=== PATIENT | female | born 1935 | race American Indian/Alaskan Native ===

== ENCOUNTER 2016-09-25 08:26 | Day surgery (SDC) | payer MEDICARE ==
[~2016-09-25 08:26] MED LIST: TETCAINE OS PRN; TETRACAINE 0.5% OS PRN
--- NOTE | 2016-09-25 12:05 | Anesthesia Consultation ---
Anesthesia Consult and Med Hx Date of service: 09/25/16 - Airway Anesthetic Teeth Evaluation: Dentures (UPPER AND LOWER) ROM Head & Neck: Adequate Mallampati Class: Class III Intubation Access Assessment: Probably Good - Pulmonary Exam CTA: Yes - Cardiac Exam Cardiac Exam: RRR - Pre-Operative Health Status ASA Pre-Surgery Classification: ASA2 Proposed Anesthetic Plan: MAC - Cardiovascular System Hx Hypertension: Yes (occas due to anxiety) - Central Nervous System Hx Psychiatric Problems: Yes - Endocrine Hx Non-Insulin Dependent Diabetes: Yes - Other Systems Hx Cancer: No
[2016-09-25] MEDS: VIGAMOX OS SCH ×3 (12:35→12:45)
[2016-09-25] MEDS: MYDRIACYL OS SCH ×3 (12:35→12:45)
[2016-09-25] MEDS: AK-Dilate OS SCH ×3 (12:35→12:45)
[2016-09-25] MEDS ORDERED: ADRENALINE P/F IV ONE (14:35)
[2016-09-25] MEDS ORDERED: SUBLIMAZE ONE (14:37)
[2016-09-25] MEDS ORDERED: VERSED ONE (14:37)
[2016-09-25] MEDS ORDERED: NACL P/F VIAL (10 ML) 10 ML ONE (14:38)
[2016-09-25] MEDS ORDERED: APRESOLINE ONE (15:04)
--- NOTE | 2016-09-25 15:11 | Short Stay Summary ---
Short Stay Documentation Date of service: 09/25/16 - History H&P: obtained from office - Allergies and Medications Current Medications: Allergies aspirin Allergy (Verified 09/23/16 10:38) Unknown Penicillins Allergy (Verified 09/23/16 10:38) Unknown Home Medications Medication Instructions Recorded Confirmed Last Taken Type Acetaminophen [Tylenol] 500 mg PO BID 05/15/16 09/23/16 Unknown History Acetaminophen/Codeine [Tylenol #3] 1 tab PO BID 05/15/16 09/23/16 09/24/16 History Esomeprazole Magnesium [NexIUM] 40 mg PO QDAY 05/15/16 09/23/16 09/24/16 History LORazepam [Ativan] 0.5 mg PO QHS PRN 05/15/16 09/23/16 09/24/16 History Potassium Chloride [K-Dur] 10 meq PO QDAY 05/15/16 09/23/16 09/24/16 History Sertraline [Zoloft] 100 mg PO QDAY 05/15/16 09/23/16 09/24/16 History Simvastatin [Zocor TAB] 40 mg PO QHS 05/15/16 09/23/16 09/24/16 History diphenhydrAMINE [Benadryl CAP] 50 mg PO Q8HR PRN 05/15/16 09/23/16 Unknown History fluPHENAZine HCL [Prolixin] 7.5 mg PO BID 05/15/16 09/23/16 09/24/16 History metFORMIN 500 mg PO DAILY 05/15/16 09/23/16 09/24/16 History traZODone [Desyrel] 100 mg PO QHS 05/15/16 09/23/16 09/24/16 History Ascorbic Acid [Vitamin C] 500 mg PO DAILY 08/12/16 09/23/16 09/24/16 History Ciclopirox 0.77% (Nf) [Loprox 1 drop TD PRN PRN 08/12/16 09/23/16 08/10/16 History 0.77% Cream] Mv,Ca,Fe,Min/FA/Guarana/Caff [One 1 each PO DAILY 08/12/16 09/23/16 09/24/16 History Daily Tablet] Solifenacin Succinate [Vesicare] 5 mg PO QDAY 08/12/16 09/23/16 09/24/16 History Vitamin E 400 unit PO DAILY 08/12/16 09/23/16 09/24/16 History amLODIPine/VALSARTAN [Exforge 1 each PO DAILY 09/25/16 09/25/16 09/25/16 08:00 History 5-160 mg Tablet] Active Medications Moxifloxacin HCl (Vigamox) 1 drops OS Q5MIN [facility] Stop: 09/25/16 20:00 Last Admin: 09/25/16 12:45 Dose: 1 drops Phenylephrine HCl (Ak-Dilate) 1 drops OS Q5M [facility] Stop: 09/25/16 20:00 Last Admin: 09/25/16 12:45 Dose: 1 drops Prednisolone Acetate (Pred Forte 1%) 1 drops OS QID [facility] Tetracaine HCl (Tetracaine 0.5%) 1 drops OS Q5M PRN PRN Reason: Anesthesia Stop: 09/25/16 20:00 Last Admin: 09/25/16 12:35 Dose: 1 drops Tropicamide (Mydriacyl) 1 drops OS Q5MIN [facility] Stop: 09/25/16 20:00 Last Admin: 09/25/16 12:45 Dose: 1 drops - Brief post op/procedure progress note Date of procedure: 09/25/16 Pre-op diagnosis: cataract left eye Post-op diagnosis: same Procedure: Phacoemulsification with intraocular lens insertion left eye Anesthesia: MAC Surgeon: ILDA ALMONTE Estimated blood loss: none Pathology: none Condition: stable - Disposition Condition at discharge: Good Disposition: DISCHARGED TO HOME OR SELFCARE - Discharge Diagnoses (1) Cataract Status: Acute
--- NOTE | 2016-09-25 15:13 | Operative Report ---
Operative Report Operative Report: PATIENT'S NAME: DATE OF : DATE OF SURGERY: 09/25/2016 PREOPERATIVE DIAGNOSIS: Cataract left eye POSTOPERATIVE DIAGNOSIS: Same OPERATIVE PROCEDURE: Phacoemulsification with intraocular lens implantation, left eye SURGEON: Stacey Kilgore M.D. ORGANIZATIONAL DEVELOPMENT CONSULTANT SURGEON: Saul Lens: [id number] 19.0 D ANESTHESIA: Monitored anesthesia care in combination with topical and intracameral anesthesia because of the established specific risk of reflux, arrhythmias, or anxiety attacks associated with ocular manipulation, as well as the difficulty of the business analysis consultant to manage such potentially catastrophic events while simultaneously attempting to complete the surgical procedure and was deemed necessary for the patient's safety to have an Obstetrician present during the procedure whenever possible. An Obstetrician was utilized to regulate the intravenous sedation of the patient so the patient was cooperative yet not asleep in order for the patient to successfully maintain fixation of the eye on the operating light of the microscope. COMPLICATIONS: [No surgical complications] No blood loss. ALLERGIES: Aspirin and penicillin PROGNOSIS: Excellent INDICATIONS FOR SURGERY: The patient is undergoing surgery in the hopes of eliminating or improving these visual difficulties. PROCEDURE: After arriving at the surgery center, the patient was given topical anesthetic and dilating drops, as noted in the record. The patient was then taken into the operating room and given more anesthetic drops. The eyelids , lashes, and lid margins were scrubbed with Betadine solution, and the patient was draped. The Nurse Obstetrician administered IV sedation and monitored the patient during the procedure. The eye was then fixated with a 0.12, and a stab incision was made in the peripheral clear cornea into the anterior chamber. This was made on my left side. Viscoelastic was next used to fill the anterior chamber. The eye was once again fixated with the 0.12 forceps and a keratome was used make an incision in clear cornea peripherally on my right hand side temporally. The capsule forceps were used to open the central anterior capsule and then make a continuous round capsulotomy. Hydrodissection was carried out utilizing a cannula and balanced salt solution to delineate the cortical material from the capsule and the nucleus from the cortical material. The phaco tip was introduced into the eye and used to remove the anterior cortical material in the area of the capsulotomy. Then the phaco tip was buried into the nucleus, and a chopping instrument was introduced into the eye and used to provide countertraction in the nucleus between this instrument and the phaco tip fracturing the nucleus. This procedure was repeated multiple times, providing multiple small segments of the lens, and then the phaco tip was used to remove each of these segments. An I/A tip was then used to remove the remaining cortex. The anterior chamber was refilled with viscoelastic. An one-piece, acrylic intraocular lens was then placed into an inserting cartridge. The tip of the inserting cartridge was introduced into the keratome incision and into the anterior chamber. The implant was gently advanced through the cartridge and into the eye, where it unfolded, and both haptics were placed in the capsular bag, where it centered nicely and appeared to be well fixated. After placement of the intraocular lens, the I~and~A handpiece was placed back into the eye and used to remove the viscoelastic, including viscoelastic that was behind the optic of the intraocular lens. The anterior chamber was then filled with balanced salt solution, and hydration of the wound was used to cause swelling of the wound and more appropriate watertight closure. When the wound was found to be firm, the patient was asked to comment on how bright the light was. If there was no light perception at all or if the light was substantially dimmer than during the rest of the surgery, the amount of fluid in the eye was decompressed to lower the intraocular pressure until the patient could see the bright light again. This was done to avoid any damage or decreased blood flow to the optic nerve. MEDICATIONS APPLIED AT END OF SURGERY: One drop of Pred Forte and Vigamox The patient was given a shield to wear at night and was instructed not to rub or push on the eye. DISCHARGE SUMMARY: The patient was released in stable condition. The patient and those with the patient were given a written sheet of postoperative instructions and counseling on any abnormal laboratory studies. The patient is to see us tomorrow for follow-up in the office and is to call immediately for any difficulties. Stacey Kilgore M.D. Date
--- NOTE | 2016-09-25 16:32 | Post Anesthesia Evaluation ---
- Post Anesthesia Evaluation Patient Participated: Yes Airway Patent: Yes Stable Respiratory Function: Yes Temp > 96.8F: Yes Pain Manageable: Yes Adequeate Hydration: Yes Anesthesia Complications: No Block Receding Appropriately: Not Applicable (Blood pressure poolly controlled, Patient should follow up with her personal physician)
[2016-09-25 16:33] VITALS: BP 162/74
[2016-09-25] MEDS ORDERED: PRED FORTE 1% OS SCH (18:00)
[2016-09-25] MEDS ORDERED: PRED FORTE 1% ONE (18:00)
== END 2016-09-25 16:57 | disposition home or self-care (01) ==
LOC: OR 08:26
DX: E11.36 Type 2 diabetes mellitus with diabetic cataract (principal); I10 Essential (primary) hypertension; K21.9 Gastro-esophageal reflux disease without esophagitis; F20.9 Schizophrenia, unspecified; F03.90 Unspecified dementia, unspecified severity, without behavioral disturbance, psychotic disturbance, mood disturbance, and anxiety
CPT/HCPCS: 66984; 82962; J0171; J0360; J2250; J3010; V2632

== ENCOUNTER 2017-09-09 10:56 | Emergency (ER) | payer MEDICARE ==
--- NOTE | 2017-09-09 11:54 | Emergency Department Report ---
HPI - General Time Seen by Provider: 09/09/17 11:39 - HPI HPI: This is an 82 year-old female presents to the emergency department from her ECF with complaint of a 3 day history of left foot pain and swelling. She denies any pain to the ankle or above. She denies any trauma. She has a past medical history of hypertension, diabetes, dementia, and paranoid schizophrenia. Her PCP is listed as a Dr. Rowley. Unknown if the patient took anything or was given anything for her symptoms prior to presentation. ED Past Medical Hx - Past Medical History Hx Hypertension: Yes (occas due to anxiety) Hx Diabetes: Yes Hx GERD: Yes (occas) Hx Psychiatric Treatment: Yes (Paranoid Schizophrenia) Hx Dementia: Yes (early onset) - Surgical History Additional Surgical History: hysterectomy - Social History Smoking Status: Former Smoker - Medications Home Medications: Home Medications Medication Instructions Recorded Confirmed Last Taken Type Acetaminophen [Tylenol] 500 mg PO BID 05/15/16 09/23/16 Unknown History Acetaminophen/Codeine [Tylenol #3] 1 tab PO BID 05/15/16 09/23/16 09/24/16 History Esomeprazole Magnesium [NexIUM] 40 mg PO QDAY 05/15/16 09/23/16 09/24/16 History LORazepam [Ativan] 0.5 mg PO QHS PRN 05/15/16 09/23/16 09/24/16 History Potassium Chloride [K-Dur] 10 meq PO QDAY 05/15/16 09/23/16 09/24/16 History Sertraline [Zoloft] 100 mg PO QDAY 05/15/16 09/23/16 09/24/16 History Simvastatin [Zocor TAB] 40 mg PO QHS 05/15/16 09/23/16 09/24/16 History diphenhydrAMINE [Benadryl CAP] 50 mg PO Q8HR PRN 05/15/16 09/23/16 Unknown History fluPHENAZine HCL [Prolixin] 7.5 mg PO BID 05/15/16 09/23/16 09/24/16 History metFORMIN 500 mg PO DAILY 05/15/16 09/23/16 09/24/16 History traZODone [Desyrel] 100 mg PO QHS 05/15/16 09/23/16 09/24/16 History Ascorbic Acid [Vitamin C] 500 mg PO DAILY 08/12/16 09/23/16 09/24/16 History Ciclopirox 0.77% (Nf) [Loprox 1 drop TD PRN PRN 08/12/16 09/23/16 08/10/16 History 0.77% Cream] Mv-Mins/Folic Acid/Guarana/Caf 1 each PO DAILY 08/12/16 09/23/16 09/24/16 History [One Daily Tablet] Solifenacin Succinate [Vesicare] 5 mg PO QDAY 08/12/16 09/23/16 09/24/16 History Vitamin E 400 unit PO DAILY 08/12/16 09/23/16 09/24/16 History amLODIPine/VALSARTAN [Exforge 1 each PO DAILY 09/25/16 09/25/16 09/25/16 08:00 History 5-160 mg Tablet] Sulfamethoxazole/Trimethoprim 1 each PO BID #14 tablet 09/09/17 Unknown Rx [Bactrim DS TAB] ED Review of Systems ROS: Stated complaint: SWOLLEN LEFT FOOT Other details as noted in HPI Comment: All other systems reviewed and negative Constitutional: denies: chills, fever Eyes: denies: eye pain, eye discharge, vision change ENT: denies: ear pain, throat pain Respiratory: denies: cough, shortness of breath, wheezing Cardiovascular: edema (left foot). denies: chest pain, palpitations Gastrointestinal: denies: abdominal pain, nausea, diarrhea Genitourinary: denies: urgency, dysuria, discharge Musculoskeletal: joint swelling, arthralgia Skin: denies: rash, lesions Neurological: denies: headache, weakness, paresthesias Physical Exam - Physical Exam Physical Exam: GENERAL: The patient is well-developed well-nourished. HENT: Normocephalic. Atraumatic. Patient has moist mucous membranes. EYES: Extraocular motions are intact. Pupils equal reactive to light bilaterally. NECK: Supple. Trachea is midline. CHEST/LUNGS: Clear to auscultation. There is no respiratory distress noted. HEART/CARDIOVASCULAR: Regular. There is no tachycardia. There is no murmur. ABDOMEN: Abdomen is soft, nontender. Patient has normal bowel sounds. There is no abdominal distention. SKIN: Skin is warm and dry. There is no appreciable edema or erythema to the affected left foot. NEURO: The patient is awake, alert. The patient is cooperative. The patient has no focal neurologic deficits. The patient has normal speech. MUSCULOSKELETAL: There is no tenderness or deformity. There is no limitation range of motion. There is no evidence of acute injury. ED Medical Decision Making - Lab Data Result diagrams: 09/09/17 12:10 09/09/17 12:10 - Radiology Data Radiology results: report reviewed, image reviewed interpreted by me: X-ray of the left foot does not show any fracture, dislocation or signs of osteomyelitis. No subcutaneous air. Left lower extremity venous Doppler negative for DVT. - Medical Decision Making 82-year-old female who is a diabetic presents with some left foot pain and swelling. No appreciable swelling here or signs or symptoms of infection. However secondary to the patient's diabetes, she'll be placed on some antibiotics and given a referral for podiatry. X-ray does not show any fracture , signs of osteomyelitis or subcutaneous air. Venous Doppler negative for DVT. Critical Care Time: No Critical care attestation.: If time is entered above; I have spent that time in minutes in the direct care of this critically ill patient, excluding procedure time. ED Disposition Clinical Impression: Left foot pain, Foot swelling Disposition: - TO HOME OR SELFCARE Is pt being admited?: No Condition: Stable Instructions: Arthralgia (ED) Additional Instructions: Please follow-up with your primary care physician in the next few days. I have given you a referral for a local apparel patternmaker, Dr. Ricardo, to follow-up regarding or foot pain. Return to the emergency Department with any worsening of your symptoms or any acute distress. Prescriptions: Sulfamethoxazole/Trimethoprim [Bactrim DS TAB] 1 each PO BID #14 tablet Referrals: PRIMARY CARE, [Primary Care Provider] - 3-5 Days VELIA RICARDO DPM [Staff Physician] - 3-5 Days Time of Disposition: 14:27
[2017-09-09 12:28] LABS: Basophils % (Auto) 0.3 % (0.0-1.8); Hematocrit 33.4 % (30.3-42.9); Hemoglobin 11.2 gm/dl (10.1-14.3); Mean Corpuscular HGB Conc 34 % (30-34); Mean Corpuscular Hemoglobin 27 pg (28-32); Mean Corpuscular Volume 81 fl (79-97); Platelet Count 217 K/mm3 (140-440); Red Blood Count 4.11 M/mm3 (3.65-5.03); Red Cell Distribution Width 14.4 % (13.2-15.2); White Blood Count 10.2 K/mm3 (4.5-11.0)
[2017-09-09 12:44] LABS: Calcium 9.6 mg/dL (8.4-10.2); Chloride 94.2 mmol/L (98-107); Uric Acid 5.9 mg/dL (3.5-7.6)
[2017-09-09] MEDS ORDERED: BACTRIM DS PO ONE (13:19)
--- NOTE | 2017-09-09 13:48 | XRay Report ---
LEFT FOOT, 3 views: History: Left foot pain. Mild osteopenia is noted. Bony alignment is normal. No soft tissue abnormalities are seen. The joint spaces appear preserved. IMPRESSION: Osteopenia. No acute process identified.
[2017-09-09 15:24] VITALS: BP 102/68
== END 2017-09-09 15:20 | disposition home or self-care (01) ==
LOC: ED 10:56
DX: M79.672 Pain in left foot (principal); M79.89 Other specified soft tissue disorders; I10 Essential (primary) hypertension; E11.9 Type 2 diabetes mellitus without complications; K21.9 Gastro-esophageal reflux disease without esophagitis; F20.0 Paranoid schizophrenia; F03.90 Unspecified dementia, unspecified severity, without behavioral disturbance, psychotic disturbance, mood disturbance, and anxiety; Z90.710 Acquired absence of both cervix and uterus; Z87.891 Personal history of nicotine dependence; Z88.6 Allergy status to analgesic agent; Z88.0 Allergy status to penicillin
CPT/HCPCS: 36415; 80048; 84550; 85025; 99284

== ENCOUNTER 2017-10-17 08:33 | Emergency (ER) | payer MEDICARE ==
[2017-10-17 09:39] LABS: Basophils % (Auto) 0.6 % (0.0-1.8); Eosinophils % (Auto) 0.1 % (0.0-4.3); Hematocrit 33.8 % (30.3-42.9); Hemoglobin 10.9 gm/dl (10.1-14.3); Lymphocytes # (Auto) 1.1 K/mm3 (1.2-5.4); Lymphocytes % (Auto) 19.5 % (13.4-35.0); Mean Corpuscular HGB Conc 32 % (30-34); Mean Corpuscular Hemoglobin 27 pg (28-32); Mean Corpuscular Volume 82 fl (79-97); Monocytes # (Auto) 0.7 K/mm3 (0.0-0.8); Monocytes % (Auto) 12.4 % (0.0-7.3); Platelet Count 213 K/mm3 (140-440); Red Cell Distribution Width 15.8 % (13.2-15.2)
--- NOTE | 2017-10-17 09:41 | Emergency Department Report ---
HPI - General Chief Complaint: Dyspnea/Respdistress Time Seen by Provider: 10/17/17 08:56 - HPI HPI: This is an 82 year-old female presents to the emergency department via EMS from her ECF at [facility] for the complaint of a productive cough. The patient says that this is been going on for a few weeks but worsened recently. Last night she says she felt like she may have had a fever but it was not checked. She denies any chest pain at rest but has some pain to the left side of her chest with coughing. She denies any back pain, nausea, vomiting, diaphoresis. She has a past medical history of some dementia , diabetes, GERD, hypertension. She has a psychiatric history of schizophrenia. She is a former smoker. She has not taken and was not given anything for her symptoms prior to presentation. No recent travel. ED Past Medical Hx - Past Medical History Previous Medical History?: Yes Hx Hypertension: Yes (occas due to anxiety) Hx Diabetes: Yes Hx GERD: Yes (occas) Hx Psychiatric Treatment: Yes (Paranoid Schizophrenia) Hx Dementia: Yes (early onset) - Surgical History Past Surgical History?: Yes Additional Surgical History: hysterectomy - Social History Smoking Status: Former Smoker Substance Use Type: None - Medications Home Medications: Home Medications Medication Instructions Recorded Confirmed Last Taken Type Acetaminophen [Tylenol] 500 mg PO BID 05/15/16 09/23/16 Unknown History Acetaminophen/Codeine [Tylenol #3] 1 tab PO BID 05/15/16 09/23/16 09/24/16 History Esomeprazole Magnesium [NexIUM] 40 mg PO QDAY 05/15/16 09/23/16 09/24/16 History LORazepam [Ativan] 0.5 mg PO QHS PRN 05/15/16 09/23/16 09/24/16 History Potassium Chloride [K-Dur] 10 meq PO QDAY 05/15/16 09/23/16 09/24/16 History Sertraline [Zoloft] 100 mg PO QDAY 05/15/16 09/23/16 09/24/16 History Simvastatin [Zocor TAB] 40 mg PO QHS 05/15/16 09/23/16 09/24/16 History diphenhydrAMINE [Benadryl CAP] 50 mg PO Q8HR PRN 05/15/16 09/23/16 Unknown History fluPHENAZine HCL [Prolixin] 7.5 mg PO BID 05/15/16 09/23/16 09/24/16 History metFORMIN 500 mg PO DAILY 05/15/16 09/23/16 09/24/16 History traZODone [Desyrel] 100 mg PO QHS 05/15/16 09/23/16 09/24/16 History Ascorbic Acid [Vitamin C] 500 mg PO DAILY 08/12/16 09/23/16 09/24/16 History Ciclopirox 0.77% (Nf) [Loprox 1 drop TD PRN PRN 08/12/16 09/23/16 08/10/16 History 0.77% Cream] Mv-Mins/Folic Acid/Guarana/Caf 1 each PO DAILY 08/12/16 09/23/16 09/24/16 History [One Daily Tablet] Solifenacin Succinate [Vesicare] 5 mg PO QDAY 08/12/16 09/23/16 09/24/16 History Vitamin E 400 unit PO DAILY 08/12/16 09/23/16 09/24/16 History amLODIPine/VALSARTAN [Exforge 1 each PO DAILY 09/25/16 09/25/16 09/25/16 08:00 History 5-160 mg Tablet] Sulfamethoxazole/Trimethoprim 1 each PO BID #14 tablet 09/09/17 Unknown Rx [Bactrim DS TAB] ALBUTEROL Inhaler [ProAir HFA 2 puff IH QID PRN #1 inhalation 10/17/17 Unknown Rx Inhaler] Benzonatate [Tessalon Perles] 100 mg PO Q8HR PRN #14 capsule 10/17/17 Unknown Rx ED Review of Systems ROS: Stated complaint: EAR PAIN Other details as noted in HPI Comment: All other systems reviewed and negative Constitutional: fever (subjective). denies: diaphoresis Eyes: denies: eye pain, eye discharge, vision change ENT: ear pain. denies: throat pain Respiratory: cough. denies: wheezing Cardiovascular: chest pain (with coughing). denies: edema Gastrointestinal: denies: abdominal pain, nausea, diarrhea Genitourinary: denies: urgency, dysuria, discharge Musculoskeletal: denies: back pain, joint swelling, arthralgia Skin: denies: rash, lesions Neurological: denies: headache, weakness, paresthesias Physical Exam - Physical Exam Vital Signs: Vital Signs 10/17/17 09:33 Temperature 98.9 F Pulse Rate 53 L Respiratory 14 Rate Blood Pressure 169/73 [Right] Physical Exam: GENERAL: The patient is well-developed well-nourished. HENT: Normocephalic. Atraumatic. Patient has moist mucous membranes. Oropharynx is clear. She has some cerumen in the external canals but otherwise there is no otitis media. EYES: Extraocular motions are intact. Pupils equal reactive to light bilaterally. NECK: Supple. Trachea is midline. CHEST/LUNGS: Clear to auscultation. A productive cough heard during examination. No tachypnea or accessory muscle use. There is no respiratory distress noted. HEART/CARDIOVASCULAR: Regular. There is no tachycardia. There is no murmur. ABDOMEN: Abdomen is soft, nontender. Patient has normal bowel sounds. There is no abdominal distention. SKIN: Skin is warm and dry. NEURO: The patient is awake, alert. The patient is cooperative. The patient has no focal neurologic deficits. The patient has normal speech. MUSCULOSKELETAL: There is no tenderness or deformity. There is no limitation range of motion. There is no evidence of acute injury. ED Course Vital Signs 10/17/17 09:33 Temperature 98.9 F Pulse Rate 53 L Respiratory 14 Rate Blood Pressure 169/73 [Right] ED Medical Decision Making - Lab Data Result diagrams: 10/17/17 09:27 10/17/17 09:27 - EKG Data -: EKG Interpreted by Me EKG shows normal: sinus rhythm, axis, intervals, QRS complexes (LVH, Q waves to the septal leads), ST-T waves Rate: bradycardia (52 bpm) - EKG Data When compared to previous EKG there are: previous EKG unavailable Interpretation: LVH (with septal q waves) - Radiology Data Radiology results: report reviewed, image reviewed interpreted by me: Chest x-ray does not show any acute process. There are no pleural effusions, obvious pneumonia and there is no pneumothorax. CTA CHEST: HISTORY: Short of breath. COMPARISON: none. TECHNIQUE: Helical CT in 1.25mm intervals following IV contrast. Pulmonary embolus protocol. Sagittal and coronal reformatted images. Rotational MIP images. FINDINGS: Contrast bolus is satisfactory. No pulmonary embolus is identified. Thyroid gland: Normal. Tracheobronchial tree: Normal. Esophagus: Normal. Heart: Mild cardiomegaly is present. Pericardium: Normal. Mediastinum: The aorta is mildly ectatic. No evidence for dissection. The ascending aorta is mildly dilated up to 4.3 cm in diameter. Lung Conteh: normal. Pleural Spaces: Normal. Musculoskeletal: Intact with mild degenerative changes. IMPRESSION: No evidence for pulmonary embolus. Mild cardiomegaly. No acute processes identified in the chest Transcribed By: TTR Dictated By: CATHY OLSEN JR, MD Electronically Authenticated By: CATHY OLSEN JR, MD Signed Date/Time: 10/17/17 1211 - Medical Decision Making 82-year-old female presents from her [facility]pc with questionable ear pain and a cough. She does not appear to be in any respiratory distress. Labs are mostly unremarkable. Chest x-ray did not show any acute process. She did have an elevated and equivocal d-dimer so a CT angiography of the chest was done that did not show any pulmonary embolus or any other acute process. Vital signs stable and being afebrile. The patient appears safe for discharge back to her fpc facility. I spoke with the patient's son and he understands and agrees with the plan. - Differential Diagnosis asthma, bronchitis, influenza, URI, PE Critical Care Time: No Critical care attestation.: If time is entered above; I have spent that time in minutes in the direct care of this critically ill patient, excluding procedure time. ED Disposition Clinical Impression: Upper respiratory infection Qualifiers: URI type: unspecified URI Qualified Code(s): J06.9 - Acute upper respiratory infection, unspecified Hypertension Qualifiers: Hypertension type: essential hypertension Qualified Code(s): I10 - Essential ( primary) hypertension Disposition: DC-01 TO HOME OR SELFCARE Is pt being admited?: No Condition: Stable Instructions: Upper Respiratory Infection (ED), Hypertension (ED) Additional Instructions: Please follow-up with your primary care physician in the next few days. Return to the emergency Department with any worsening of your symptoms or any acute distress. Prescriptions: ALBUTEROL Inhaler [ProAir HFA Inhaler] 2 puff IH QID PRN #1 inhalation PRN Reason: Shortness Of Breath Benzonatate [Tessalon Perles] 100 mg PO Q8HR PRN #14 capsule PRN Reason: Cough Referrals: PRIMARY CARE, [Primary Care Provider] - 3-5 Days Time of Disposition: 12:45
[2017-10-17 09:50] LABS: INR 0.99 (0.87-1.13); Partial Thromboplastin Time 30.5 Sec. (24.2-36.6)
[2017-10-17 09:57] LABS: BUN/Creatinine Ratio 22; Blood Urea Nitrogen 11 mg/dL (7-17); Calcium 8.7 mg/dL (8.4-10.2); Hemolysis Index 10
--- NOTE | 2017-10-17 10:27 | XRay Report ---
AP CHEST: HISTORY: chest pain AP view of the chest demonstrates a normal mediastinal and cardiac contour with clear lungs and normal bony and soft tissue structures. IMPRESSION: No acute cardiopulmonary process identified.
--- NOTE | 2017-10-17 12:17 | Cat Scan Report ---
CTA CHEST: HISTORY: Short of breath. COMPARISON: none. TECHNIQUE: Helical CT in 1.25mm intervals following IV contrast. Pulmonary embolus protocol. Sagittal and coronal reformatted images. Rotational MIP images. FINDINGS: Contrast bolus is satisfactory. No pulmonary embolus is identified. Thyroid gland: Normal. Tracheobronchial tree: Normal. Esophagus: Normal. Heart: Mild cardiomegaly is present. Pericardium: Normal. Mediastinum: The aorta is mildly ectatic. No evidence for dissection. The ascending aorta is mildly dilated up to 4.3 cm in diameter. Lung Conteh: normal. Pleural Spaces: Normal. Musculoskeletal: Intact with mild degenerative changes. IMPRESSION: No evidence for pulmonary embolus. Mild cardiomegaly. No acute processes identified in the chest
[2017-10-17 12:45] VITALS: BP 161/68
== END 2017-10-17 14:30 | disposition home or self-care (01) ==
LOC: ED 08:33
DX: J06.9 Acute upper respiratory infection, unspecified (principal); I10 Essential (primary) hypertension; E11.9 Type 2 diabetes mellitus without complications; K21.9 Gastro-esophageal reflux disease without esophagitis
CPT/HCPCS: 36415; 71045; 71275; 80048; 84484; 85025; 85379; 85610; 85730; 87400; 93005; 93010; 99285; Q9967

== ENCOUNTER 2017-10-18 14:52 | Emergency (ER) | payer MEDICARE ==
[2017-10-18 15:08] VITALS: BP 116/69
[2017-10-18] MEDS ORDERED: THERMAZENE 50 GRAM TP ONE (16:48)
[2017-10-18] MEDS ORDERED: BOOSTRIX IM ONE (16:48)
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
== END 2017-10-18 17:41 | disposition home or self-care (01) ==
LOC: ED 14:52
DX: T22.252A Burn of second degree of left shoulder, initial encounter (principal); E11.9 Type 2 diabetes mellitus without complications; K21.9 Gastro-esophageal reflux disease without esophagitis; F25.8 Other schizoaffective disorders; Z88.0 Allergy status to penicillin; Z88.6 Allergy status to analgesic agent; F03.90 Unspecified dementia, unspecified severity, without behavioral disturbance, psychotic disturbance, mood disturbance, and anxiety; X17.XXXA Contact with hot engines, machinery and tools, initial encounter; Y93.89 Activity, other specified; Y92.89 Other specified places as the place of occurrence of the external cause; Y99.8 Other external cause status
CPT/HCPCS: 90471; 90715

== ENCOUNTER 2018-11-25 20:56 | Emergency (ER) | payer MEDICARE ==
--- NOTE | 2018-11-25 22:06 | Emergency Department Report ---
ED Neck Pain/Injury HPI - General Chief Complaint: Neck Pain/Injury Stated Complaint: NECK PAIN Time Seen by Provider: 11/25/18 21:27 Mode of arrival: Stretcher Limitations: Other - History of Present Illness Initial Comments: 83-year-old female, resident of assisted living facility, presents with complaint of posterior neck pain 2 weeks. Patient states pain radiates around the right side of the neck, worse with movement. Denies trauma. Patient states she isn't taking Tylenol for this pain. Denies numbness, paresthesias in the extremities. Reports mild weakness and right onset of the pain. Patient states she is right-handed, denies dropping items. MD Complaint: neck pain -: week(s) (2) Severity: moderate Quality: aching Consistency: intermittent Worsens With: movement of neck Context: unknown Associated Symptoms: weakness. denies: headache, fever, numbness, tingling, difficulty swallowing, vomiting Treatments Prior to Arrival: Acetaminophen - Related Data Home Medications Medication Instructions Recorded Confirmed Last Taken Acetaminophen [Tylenol] 500 mg PO BID 05/15/16 09/23/16 Unknown Acetaminophen/Codeine [Tylenol #3] 1 tab PO BID 05/15/16 09/23/16 09/24/16 Esomeprazole Magnesium [NexIUM] 40 mg PO QDAY 05/15/16 09/23/16 09/24/16 LORazepam [Ativan] 0.5 mg PO QHS PRN 05/15/16 09/23/16 09/24/16 Potassium Chloride [K-Dur] 10 meq PO QDAY 05/15/16 09/23/16 09/24/16 Sertraline [Zoloft] 100 mg PO QDAY 05/15/16 09/23/16 09/24/16 Simvastatin [Zocor TAB] 40 mg PO QHS 05/15/16 09/23/16 09/24/16 diphenhydrAMINE [Benadryl CAP] 50 mg PO Q8HR PRN 05/15/16 09/23/16 Unknown fluPHENAZine HCl [Prolixin] 7.5 mg PO BID 05/15/16 09/23/16 09/24/16 metFORMIN 500 mg PO DAILY 05/15/16 09/23/16 09/24/16 traZODone [Desyrel] 100 mg PO QHS 05/15/16 09/23/16 09/24/16 Ascorbic Acid [Vitamin C] 500 mg PO DAILY 08/12/16 09/23/16 09/24/16 Ciclopirox 0.77% (Nf) [Loprox 1 drop TD PRN PRN 08/12/16 09/23/16 08/10/16 0.77% Cream] Mv-Mins/Folic Acid/Guarana/Caf 1 each PO DAILY 08/12/16 09/23/16 09/24/16 [One Daily Tablet] Solifenacin Succinate [Vesicare] 5 mg PO QDAY 08/12/16 09/23/16 09/24/16 Vitamin E 400 unit PO DAILY 08/12/16 09/23/16 09/24/16 amLODIPine/VALSARTAN [Exforge 1 each PO DAILY 09/25/16 09/25/16 09/25/16 08:00 5-160 mg Tablet] Previous Rx's Medication Instructions Recorded Last Taken Type Sulfamethoxazole/Trimethoprim 1 each PO BID #14 tablet 09/09/17 Unknown Rx [Bactrim DS TAB] ALBUTEROL Inhaler (OR & NICU) 2 puff IH QID PRN #1 inhalation 10/17/17 Unknown Rx [ProAir HFA Inhaler] Benzonatate [Tessalon Perles] 100 mg PO Q8HR PRN #14 capsule 10/17/17 Unknown Rx SILVER sulfADIAZINE 50 GRAM 1 applic TP BID #1 tube 10/18/17 Unknown Rx [Thermazene 50 Gram] Sulfamethoxazole/Trimethoprim 1 each PO BID 5 Days #10 tablet 06/27/18 Unknown Rx [Bactrim DS TAB] Cyclobenzaprine HCl [Flexeril 5 MG 5 mg PO QDAY #10 tablet 11/25/18 Unknown Rx TAB] Allergies Allergy/AdvReac Type Severity Reaction Status Date / Time aspirin Allergy Unknown Verified 10/18/17 15:05 Penicillins Allergy Unknown Verified 10/18/17 15:05 ED Review of Systems ROS: Stated complaint: NECK PAIN Other details as noted in HPI Comment: All other systems reviewed and negative Constitutional: denies: chills, fever Respiratory: denies: shortness of breath Cardiovascular: denies: chest pain Musculoskeletal: as per HPI Neurological: weakness. denies: headache, numbness, paresthesias ED Past Medical Hx - Past Medical History Hx Hypertension: Yes (occas due to anxiety) Hx Diabetes: Yes Hx GERD: Yes (occas) Hx Psychiatric Treatment: Yes (Paranoid Schizophrenia) Hx Dementia: Yes (early onset) - Surgical History Past Surgical History?: Yes Additional Surgical History: hysterectomy - Social History Smoking Status: Unknown if ever smoked - Medications Home Medications: Home Medications Medication Instructions Recorded Confirmed Last Taken Type Acetaminophen [Tylenol] 500 mg PO BID 05/15/16 09/23/16 Unknown History Acetaminophen/Codeine [Tylenol #3] 1 tab PO BID 05/15/16 09/23/16 09/24/16 History Esomeprazole Magnesium [NexIUM] 40 mg PO QDAY 05/15/16 09/23/16 09/24/16 History LORazepam [Ativan] 0.5 mg PO QHS PRN 05/15/16 09/23/16 09/24/16 History Potassium Chloride [K-Dur] 10 meq PO QDAY 05/15/16 09/23/16 09/24/16 History Sertraline [Zoloft] 100 mg PO QDAY 05/15/16 09/23/16 09/24/16 History Simvastatin [Zocor TAB] 40 mg PO QHS 05/15/16 09/23/16 09/24/16 History diphenhydrAMINE [Benadryl CAP] 50 mg PO Q8HR PRN 05/15/16 09/23/16 Unknown History fluPHENAZine HCl [Prolixin] 7.5 mg PO BID 05/15/16 09/23/16 09/24/16 History metFORMIN 500 mg PO DAILY 05/15/16 09/23/16 09/24/16 History traZODone [Desyrel] 100 mg PO QHS 05/15/16 09/23/16 09/24/16 History Ascorbic Acid [Vitamin C] 500 mg PO DAILY 08/12/16 09/23/16 09/24/16 History Ciclopirox 0.77% (Nf) [Loprox 1 drop TD PRN PRN 08/12/16 09/23/16 08/10/16 History 0.77% Cream] Mv-Mins/Folic Acid/Guarana/Caf 1 each PO DAILY 08/12/16 09/23/16 09/24/16 History [One Daily Tablet] Solifenacin Succinate [Vesicare] 5 mg PO QDAY 08/12/16 09/23/16 09/24/16 History Vitamin E 400 unit PO DAILY 08/12/16 09/23/16 09/24/16 History amLODIPine/VALSARTAN [Exforge 1 each PO DAILY 09/25/16 09/25/16 09/25/16 08:00 History 5-160 mg Tablet] Sulfamethoxazole/Trimethoprim 1 each PO BID #14 tablet 09/09/17 Unknown Rx [Bactrim DS TAB] ALBUTEROL Inhaler (OR & NICU) 2 puff IH QID PRN #1 inhalation 10/17/17 Unknown Rx [ProAir HFA Inhaler] Benzonatate [Tessalon Perles] 100 mg PO Q8HR PRN #14 capsule 10/17/17 Unknown Rx SILVER sulfADIAZINE 50 GRAM 1 applic TP BID #1 tube 10/18/17 Unknown Rx [Thermazene 50 Gram] Sulfamethoxazole/Trimethoprim 1 each PO BID 5 Days #10 tablet 06/27/18 Unknown Rx [Bactrim DS TAB] Cyclobenzaprine HCl [Flexeril 5 MG 5 mg PO QDAY #10 tablet 11/25/18 Unknown Rx TAB] ED Physical Exam - General Limitations: Other General appearance: alert, in no apparent distress - Head Head exam: Present: atraumatic, normocephalic - ENT ENT exam: Present: mucous membranes moist - Neck Neck exam: Present: normal inspection, other (normal right and left rotation; ). Absent: tenderness - Respiratory Respiratory exam: Present: normal lung sounds bilaterally. Absent: respiratory distress - Cardiovascular Cardiovascular Exam: Present: regular rate, normal rhythm - GI/Abdominal GI/Abdominal exam: Present: soft. Absent: distended, tenderness - Neurological Exam Neurological exam: Present: alert, oriented X3, other (upper extremity strength 5/5 bilaterally) - Psychiatric Psychiatric exam: Present: normal affect, normal mood - Skin Skin exam: Present: warm, dry, intact, normal color. Absent: rash ED Course Vital Signs 11/25/18 11/25/18 11/25/18 21:14 21:30 21:50 Temperature 98.9 F Pulse Rate 60 58 L Respiratory 19 18 18 Rate Blood Pressure 119/65 145/65 [Left] O2 Sat by Pulse 98 98 98 Oximetry 11/25/18 23:13 Temperature Pulse Rate 66 Respiratory 16 Rate Blood Pressure 160/63 [Left] O2 Sat by Pulse 97 Oximetry ED Medical Decision Making - Radiology Data Radiology results: report reviewed, image reviewed - Medical Decision Making 83-year-old female with atraumatic posterior neck pain 2 weeks. Strength and sensation normal in bilateral upper extremities. Range of motion is grossly intact. No evidence of meningismus. She is afebrile. CT shows cervical spondylosis, this is likely the cause of her pain. Patient has been taking Tylenol at home, will give prescription for low-dose of Flexeril. Patient advised to follow-up with her PCP. Return precautions given. - Differential Diagnosis arthritis, fracture, torticollis Critical care attestation.: If time is entered above; I have spent that time in minutes in the direct care of this critically ill patient, excluding procedure time. ED Disposition Clinical Impression: Cervical spondylosis Disposition: DC-01 TO HOME OR SELFCARE Is pt being admited?: No Condition: Stable Instructions: Degenerative Disc Disease (ED) Prescriptions: Cyclobenzaprine HCl [Flexeril 5 MG TAB] 5 mg PO QDAY #10 tablet Referrals: JADE GOLDMAN MD [Primary Care Provider] - 3-5 Days Time of Disposition: 22:54
--- NOTE | 2018-11-25 22:44 | Cat Scan Report ---
PROCEDURE: CT CERVICAL SPINE WO CON TECHNIQUE: Computerized tomography of the cervical spine was performed from the skull base to T1 wit hout contrast material. CT DOSE LENGTH PRODUCT: mGycm HISTORY: pain, no trauma COMPARISONS: None . FINDINGS: Vertebral height and alignment are within normal limits. An acute fracture is not identified. Visuali zed lung apices are clear. Bilateral carotid calcification is noted. A hypodense nodule measuring 0.9 cm is noted in the left lobe thyroid. C1-2: There is narrowing of the atlantoaxial joint space with.. C2-3: No significant abnormality . C3-4: There is mild degree bilateral facet arthropathy without significant spinal canal or neural for aminal compromise. There is mild degree central disc protrusion without significant spinal canal comp romise.. C4-5: Mild degree broad-based disc osteophyte complex is noted resulting in mild degree spinal canal stenosis. Mild degree bilateral facet arthropathy is noted without significant neural foraminal compr omise. C5-6: Mild degree broad-based disc osteophyte complex is noted resulting in mild degree spinal canal stenosis. Mild degree of bilateral neural foraminal stenosis is noted secondary to uncovertebral and facet degenerative changes.. C6-7: No significant abnormality . C7-T1: No significant abnormality . Fractures: None . Other: No additional findings . IMPRESSION: Multilevel cervical spondylosis as described above. Left lobe thyroid nodule Carotid calcification. Doppler evaluation is recommended.. This document is electronically signed by Gregg Car MD., November 25 2018 10:41:42 PM ET
[2018-11-25 23:15] VITALS: BP 160/63
== END 2018-11-25 23:15 | disposition home or self-care (01) ==
LOC: ED 20:56
DX: M47.892 Other spondylosis, cervical region (principal); I10 Essential (primary) hypertension; E11.9 Type 2 diabetes mellitus without complications; K21.9 Gastro-esophageal reflux disease without esophagitis; F20.9 Schizophrenia, unspecified; F20.0 Paranoid schizophrenia; Z90.710 Acquired absence of both cervix and uterus
CPT/HCPCS: 72125